=== PATIENT | male | born 1980 | race Caucasian/White ===

== ENCOUNTER 2020-08-14 20:37 | Emergency (ER) | payer OTHER ==
[~2020-08-14] VITALS: Ht 177.8 cm; Wt 113.6 kg
[2020-08-14 20:43] VITALS: BP 141/94
== END 2020-08-14 21:10 | disposition home or self-care (01) ==
LOC: ER 20:38
DX: Z02.89 Encounter for other administrative examinations (principal); F17.200 Nicotine dependence, unspecified, uncomplicated
CPT/HCPCS: 99283